=== PATIENT | male | born 1990 | race Caucasian/White ===

== ENCOUNTER 2018-08-16 19:28 | Observation (INO) ==
[2018-08-16] MEDS ORDERED: IOPAMIDOL 100 ML BOTTLE IV ONE (19:29)
--- NOTE | 2018-08-16 19:55 | Emergency Department Note ---
Abdominal Pain HPI - General Chief Complaint: Abdominal Pain Stated Complaint: Right lower abd pain Time Seen by Provider: 08/16/18 19:37 Source: patient, family Mode of arrival: ambulatory Limitations: no limitations - History of Present Illness HPI Narrative: 27-year-old male in ED with lower right quadrant abdominal pain. Patient states last night he went to bed and was woke up by right lower quadrant abdominal pain and a cramping sensation. Patient thought maybe he needed to have a bowel movement. Patient woke in the morning had a bowel movement per his normal, but continued to feel that full cramping feeling. Patient states she's had no ch anges with the urine, has had nausea with one episode of vomiting, no fever no change in appetite, no shortness of breath no difficulty breathing and no chest pain. Patient states the pain is a 5/10 constant. Patient takes no medications and has no allergies. Patient is a past smoker, does drink alcohol every other day and does smoke marijuana occasionally. MD Complaint: abdominal pain Onset (ago): day(s) (1) Consistency: constant Location: RLQ Severity: moderate Severity scale (1-10): 5 Quality: cramping, fullness Radiation: none Improves with: nothing Worsens with: nothing Associated symptoms: Reports: nausea, vomiting. Denies: diarrhea, fever, chills, constipation - Related Data Allergies Allergy/AdvReac Type Severity Reaction Status Date / Time pet dander AdvReac Mild Itching Uncoded 08/16/18 19:33 Review of Systems All systems ED: reviewed and negative except as stated. Abdominal Pain PMH - Social History Smoking status: Former smoker Physical Exam Limitations: no limitations General appearance: alert, anxious, in no apparent distress Head: atraumatic, normocephalic, normal inspection Eye: Present: normal appearance, PERRL. Absent: conjunctival injection ENT: normal oropharynx, mucous membranes moist, TM's normal bilaterally, normal external ear exam Neck: Present: normal inspection. Absent: tenderness, lymphadenopathy Chest: Present: normal inspection, symmetric chest wall rise. Absent: tenderness Respiratory: Present: normal lung sounds bilaterally. Absent: respiratory distress, rales/crackles, wheezes Cardiovascular: Present: regular rate, normal rhythm. Absent: systolic murmur, diastolic murmur Abdominal: Present: soft, tenderness, hypoactive bowel sounds, heel tap sign, Rovsing's sign, tenderness at McBurney's Point. Absent: distention, guarding, rebound, rigidity, organomegaly Abdominal tenderness: Present: RLQ, moderate, heel tap pain Extremities: Present: normal inspection. Absent: pedal edema Back: Present: normal inspection. Absent: tenderness, CVA tenderness (R), CVA t enderness (L) Neurological: Present: alert, oriented X3, normal gait Psychiatric: Present: normal affect, normal mood, anxious. Absent: depressed, agitated, flat affect Skin: Present: warm, dry, intact, normal color. Absent: cool, diaphoretic Course Vital Signs Temperature 97.9 F 08/16/18 19:28 Pulse Rate 84 08/16/18 19:28 Respiratory Rate 18 08/16/18 19:28 Blood Pressure 117/75 08/16/18 19:28 Pulse Oximetry (%) 96 08/16/18 19:28 Temperature 97.9 F 08/16/18 19:28 Pulse Rate 84 08/16/18 19:28 Respiratory Rate 18 08/16/18 19:28 Blood Pressure 117/75 08/16/18 19:28 Pulse Oximetry (%) 96 08/16/18 19:28 Abdominal Pain - MDM Narrative Medical decision making narrative: Pt did not want any IV fluid or medication for nausea at this time. WBC 15.4 all other lab work virtually unremarkable. Patient's urine dip was neg ative for leukocytes, nitrites, blood, ketones, glucose. Specific gravity was 1.030. Dr. Bill was consulted and he advised for patient to be nothing by mouth after midnight and he would see patient and perform surgery in the morning. Placed patient on Zosyn prior to transfer to floor. - Lab Data Lab results reviewed: Yes I reviewed the patient's lab results. Result diagrams: 08/16/18 19:56 08/16/18 19:56 Lab Results 08/16/18 08/16/18 Range/Units 19:56 19:56 WBC 15.4 H (4.5-11.0) K/mcL RBC 4.55 (4.50-5.90) M/mcL Hgb 14.3 (13.5-16.5) g/dL Hct 43.1 (41.0-55.0) % POC Hct 45.0 (41.0-55.0) % MCV 94.8 (80.0-100.0) fL MCH 31.5 (26.0-34.0) pg MCHC 33.2 (31.0-36.0) g/dL RDW 12.8 (11.5-14.5) % Plt Count 246 (140-440) K/mcL MPV 8.3 (7.4-10.4) fL Gran % 84.9 H (38.0-78.0) % Lymph % (Auto) 8.8 L (15.5-49.0) % [place] % (Auto) 5.7 (1.0-12.0) % Eos % (Auto) 0.6 (0.0-7.0) % Baso % (Auto) 0 (0.0-2.0) % Gran # 13.1 H (1.8-8.0) K/mcL Lymph # (Auto) 1.4 L (1.5-4.8) K/mcL [place] # (Auto) 0.9 (0.1-0.9) K/mcL Eos # (Auto) 0.1 (0.0-0.7) K/mcL Baso # (Auto) 0 (0.0-0.3) K/mcL POC Sodium 139 (133-145) mmol/L Sodium 137 (133-145) mmol/L POC Potassium 3.7 (3.3-5.1) mmol/L Potassium 3.8 (3.3-5.1) mmol/L POC Chloride 102 (96-108) mmol/L Chloride 100 (96-108) mmol/L Carbon Dioxide 24 (22-30) mmol/L POC Total CO2 24 (22-30) mmol/L Anion Gap 13.0 (8-16) POC BUN 10 (6-20) mg/dl BUN 10 (6-20) mg/dl Creatinine 0.7 (0.7-1.2) mg/dl POC Creatinine 0.7 (0.7-1.2) mg/dl GFR Calculation 129 Glucose 89 (70-105) mg/dL POC Glucose 93 (70-105) mg/dL Calcium 9.3 (8.6-10.4) mg/dl POC WB Ioniz Calcium 1.19 (1.16-1.32) mmol/L Total Bilirubin 0.7 (0.0-1.0) mg/dL AST 25 (0-37) U/l ALT 30 (0-40) U/l Alkaline Phosphatase 55 (39-117) U/L Total Protein 7.7 (5.9-8.4) gm/dL Albumin 4.7 (3.2-5.2) gm/dL Globulin 3.0 (2.2-3.7) gm/dL Albumin/Globulin Ratio 1.6 (1.0-2.3) Lipase 27 (7-60) U/L - Radiology Data Radiology results reviewed: Yes I reviewed the patient's radiology results. CT abdominal pelvis with contrast: Acute appendicitis without rupture. 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 Disposition Pt seen by CHAIR FINISHER/PA only: No ([facility]) Clinical Impression: Appendicitis Qualifiers: Appendicitis type: acute appendicitis Acute appendicitis type: with localized peritonitis Appendicitis gangrene presence: without gangrene Appendicitis perforation presence: without perforation Appendicitis abscess presence: without abscess Qualified Code(s): K35.30 - Acute appendicitis with localized peritonitis, without perforation or gangrene Disposition: Xfer As Inpt ([facility]) Condition: Good Time of Disposition: 21:33
[2018-08-16 20:48] LABS: Basophils # (Auto) 0 K/mcL (0.0-0.3); Basophils % (Auto) 0 % (0.0-2.0); Eosinophils # (Auto) 0.1 K/mcL (0.0-0.7); Eosinophils % (Auto) 0.6 % (0.0-7.0); Granulocytes % (Auto) 84.9 % (38.0-78.0); Lymphocytes # (Auto) 1.4 K/mcL (1.5-4.8); Lymphocytes % (Auto) 8.8 % (15.5-49.0); Mean Cell Volume 94.8 fL (80.0-100.0); Mean Corpuscular HGB Conc 33.2 g/dL (31.0-36.0); Monocytes # (Auto) 0.9 K/mcL (0.1-0.9); Monocytes % (Auto) 5.7 % (1.0-12.0); Platelet Count 246 K/mcL (140-440); RBC 4.55 M/mcL (4.50-5.90); Red Cell Distribution Width 12.8 % (11.5-14.5)
[2018-08-16 21:05] LABS: ALT/SGPT 30 U/l (0-40); Albumin 4.7 gm/dL (3.2-5.2); Albumin/Globulin Ratio 1.6 (1.0-2.3); Alkaline Phosphatase 55 U/L (39-117); Blood Urea Nitrogen 10 mg/dl (6-20); Lipase 27 U/L (7-60)
[2018-08-16] MEDS ORDERED: PIPERACILLIN SODIUM/TAZOBACTAM 3.375 GM in DEXTROSE 5% IN WATER 50 ML IV ONE (21:19)
[2018-08-16] MEDS ORDERED: ONDANSETRON 4 MG/2 ML VIAL IV PRN (21:20)
[2018-08-16] MEDS ORDERED: HYDROmorphone 2 MG/ML VIAL IV PRN (21:26)
[2018-08-16] MEDS: PIPERACILLIN SODIUM/TAZOBACTAM 3.375 GM in DEXTROSE 5% IN WATER 50 ML IV SCH (22:14)
[2018-08-17] MEDS: PIPERACILLIN SODIUM/TAZOBACTAM 3.375 GM in DEXTROSE 5% IN WATER 50 ML IV SCH ×5 (01:05→23:40)
--- NOTE | 2018-08-17 06:04 | Cat Scan Report ---
CLINICAL INFORMATION: Right lower quadrant abdominal pain COMPARISON: None. TECHNIQUE: Axial images were obtained through the abdomen and pelvis. Sagittally and coronally reformatted images. 80 mL contrast material injected intravenously. Oral contrast material was not administered FINDINGS: Appendix is enlarged and measures approximately 9 mm in cross-sectional diameter. The appendiceal wall enhances. There is no significant appendicolith. There is no periappendiceal inflammatory change. There is no focal abscess. Appearance is consistent with appendicitis without rupture. Lung bases are negative. No parenchymal infiltrate or mass. No pleural fluid. No pericardial fluid. Negative liver. No focal intrahepatic abnormality. Liver contour is smooth. There is no ascites. Gallbladder is present. No calcified gallstones. Negative spleen. No splenomegaly. Normal enhancement of splenic and portal veins. Negative pancreas. No pancreatic mass. No evidence for pancreatitis. Negative adrenal glands. Kidneys are negative. No solid or cystic mass. No hydronephrosis. No significant retroperitoneal or mesenteric adenopathy. No pneumoperitoneum. No biliary or portal venous gas. No pneumatosis. Lumbar spine, sacrum, pelvis are negative. Examination was initially interpreted by [facility] IMPRESSION: Enlarged appendix with enhancing wall. Appearance is consistent with early appendicitis without rupture The exam was performed using radiation dose optimization techniques including, but not limited to, automated exposure control, adjustment of the mA and/or kV according to patient size and use of iterative reconstruction technique. Interpreted and Authenticated by: Thomas Alvarez 08/17/18
--- NOTE | 2018-08-17 06:11 | Emergency Department Note ---
ED Note Addendum Note Addendum: I discussed this case with the mid-level provider and agree with the assessment and plan.
[2018-08-17] MEDS ORDERED: 0.9 % SODIUM CHLORIDE 1,000 ML IV SCH (09:30)
--- NOTE | 2018-08-17 13:37 | General Surg History&Physical ---
History of Present Illness Patient information: Note initiated : 08/17/18 at 1:35 pm Service Date, if different from initiated Date: [] Patient: Ed Ko a 27 y/o M admitted on 08/16/18 for Right lower abd pain. Chief Complaint: [] HPI: Mr. Ko is a 27 year old M admitted with right lower quadrant pain nausea and vomiting. The patient started having diffuse abdominal pain on 15 August. Pain continued throughout yesterday which was 16 August. Overnight the pain localized to the right lower quadrant and he was seen in the emergency room. He had nausea with vomiting but no change in bowel habits. He has not had similar pain in the past. He had a CT scan which showed a dilated edematous appendix. White blood count is 15,000. Patient is counseled for appendicitis and will have laparoscopic appendectomy Review of Systems All systems PM: reviewed and no additional remarkable complaints except as stated Past History Past medical history: No medical illnesses Past surgical history: No operative procedure Past family history: Parents alive and well without illness 1 sibling age 32 without illness Past social history: Single Daily tobacco use Occasional beer use Occasional marijuana use Medications and Allergies Home Medications Medication Instructions Recorded Confirmed Type No Known Home Meds 08/17/18 08/17/18 History Allergies Allergy/AdvReac Type Severity Reaction Status Date / Time pet dander AdvReac Mild Itching Uncoded 08/16/18 19:33 Exam Temp Pulse Resp BP Pulse Ox 98.2 F 70 16 114/64 100 08/17/18 11:10 08/17/18 03:46 08/17/18 11:10 08/17/18 11:10 08/17/18 11:10 - General physical appearance well developed, well nourished, no distress - Eyes PERRL, normal ocular movement - ENT normal pinna, normal nares, normal mucosa, no hearing loss, no congestion - Head Head exam IM: Present: atraumatic, normocephalic - Neck no masses, no bruits, trachea midline, no lymphadenopathy, no venous distension - Cardiovascular Cardiovascular exam IM: Present: normal rate and rhythm - Respiratory normal expansion, normal respiratory effort, clear to percussion, clear to auscultation - Abdomen Abdomen: Present: soft, tender (mild tenderness to palpation in right lower quadrant without mass), bowel sounds Hernia: Present: none - Genitourinary Present: normal penis with no external lesions - Integumentary Present: no rash, no growths, no abnormal pigmentation - Neurologic Present: normal coordination, normal sensation - Musculoskeletal Present: normal gait, normal posture - Psychiatric Present: oriented to time, oriented to person, oriented to place, speech is normal, memory intact Assessment and Plan (1) Acute appendicitis Patient is counseled for laparoscopic appendectomy and it will be performed today Status: Acute Qualifiers: Acute appendicitis type: with localized peritonitis Appendicitis gangrene presence: without gangrene Appendicitis perforation presence: without perforation
[2018-08-17] MEDS ORDERED: PROPOFOL 200 MG/20 ML VIAL IV ONE (14:00)
[2018-08-17] MEDS ORDERED: MIDAZOLAM 2 MG/2 ML VIAL IV ONE (14:00)
[2018-08-17] MEDS ORDERED: LIDOCAINE HCL/PF 100 MG/5 ML SYRINGE IV ONE (14:00)
[2018-08-17] MEDS ORDERED: ROCURONIUM 10 MG/ML ML IV ONE (14:00)
[2018-08-17] MEDS ORDERED: GLYCOPYRROLATE 0.2 MG/ML VIAL IV ONE (14:00)
[2018-08-17] MEDS ORDERED: PHENYLEPHRINE 10 MG/ML VIAL IV ONE (14:00)
[2018-08-17] MEDS ORDERED: ONDANSETRON 4 MG/2 ML VIAL IV ONE (14:00)
[2018-08-17] MEDS ORDERED: fentaNYL 250 MCG/5 ML VIAL IV ONE (14:00)
[2018-08-17] MEDS ORDERED: NEOSTIGMINE 1 MG/ML VIAL IV ONE (14:00)
[2018-08-17] MEDS ORDERED: DEXAMETHASONE 4 MG/ML VIAL IV ONE (14:00)
[2018-08-17] MEDS ORDERED: ACETAMINOPHEN 1,000 MG/100 ML BOTTLE IV ONE ×2 (14:22→21:01)
[2018-08-17] MEDS ORDERED: IPRATROPIUM/ALBUTEROL 3 ML AMPUL.NEB NEB PRN (14:22)
[2018-08-17] MEDS ORDERED: ONDANSETRON 4 MG/2 ML VIAL IV PRN ×2 (14:22→15:39)
[2018-08-17] MEDS ORDERED: LACTATED RINGERS 250 ML IV PRN (14:22)
[2018-08-17] MEDS ORDERED: diphenhydrAMINE 50 MG/ML VIAL IV PRN (14:22)
[2018-08-17] MEDS ORDERED: BENZOCAINE/MENTHOL 1 LOZENGE PO PRN (14:22)
[2018-08-17] MEDS ORDERED: NALOXONE HCL 0.4 MG/ML VIAL IV PRN (14:22)
[2018-08-17] MEDS ORDERED: PROMETHAZINE 25 MG/ML VIAL IV PRN ×2 (14:22→15:39)
[2018-08-17] MEDS ORDERED: FLUMAZENIL 0.1 MG/ML ML IV PRN (14:22)
[2018-08-17] MEDS ORDERED: KETOROLAC 30 MG/ML VIAL IV PRN (14:22)
[2018-08-17] MEDS ORDERED: MEPERIDINE 25 MG/ML SYRINGE IV PRN (14:22)
[2018-08-17] MEDS ORDERED: LACTATED RINGERS 1,000 ML IV SCH (14:30)
--- NOTE | 2018-08-17 14:38 | Brief Operative Note ---
Date of procedure: 08/17/18 Pre-op diagnosis: acute appendicitis Post-op diagnosis: other (acute appendicitis) Procedure: LAPAROSCOPIC APPENDECTOMY Grafts/Implants: No Anesthesia: GETA Findings: ACUTE APPENDICITIS Complications: none Surgeon: Radha Bill Estimated blood loss (cc): 5 Specimens Removed/Pathology: other (APPENDIX) Condition: stable Disposition: PACU
[2018-08-17] MEDS: fentaNYL 100 MCG/2 ML VIAL IV PRN ×4 (15:11→15:20)
[2018-08-17] MEDS: HYDROmorphone 2 MG/ML VIAL IV PRN ×2 (16:01→19:16)
[2018-08-17] MEDS: 0.9 % SODIUM CHLORIDE 1,000 ML IV SCH ×3 (16:06→19:50)
[2018-08-17] MEDS: PANTOPRAZOLE 40 MG VIAL IV SCH (16:43)
[2018-08-17] MEDS: ACETAMINOPHEN 1,000 MG in PREMIX 1 BAG IV SCH (21:13)
[2018-08-18] MEDS: HYDROmorphone 2 MG/ML VIAL IV PRN (00:50)
[2018-08-18] MEDS ORDERED: ACETAMINOPHEN 1,000 MG/100 ML BOTTLE IV ONE ×2 (03:21→08:01)
[2018-08-18] MEDS: ACETAMINOPHEN 1,000 MG in PREMIX 1 BAG IV SCH ×2 (03:29→08:06)
[2018-08-18] MEDS: PIPERACILLIN SODIUM/TAZOBACTAM 3.375 GM in DEXTROSE 5% IN WATER 50 ML IV SCH ×2 (05:55→11:10)
[2018-08-18] MEDS: PANTOPRAZOLE 40 MG VIAL IV SCH (08:05)
[2018-08-18] MEDS: 0.9 % SODIUM CHLORIDE 1,000 ML IV SCH (11:11)
--- NOTE | 2018-08-18 12:21 | Surgical Pathology Report ---
HISTOLOGY SPECIMEN MICROSCOPIC DIAGNOSIS APPENDIX, APPENDECTOMY: -- ACUTE APPENDICITIS. (RLF:[place]) CLINICAL HISTORY Right lower abdominal pain. PROCEDURAL IMPRESSION Acute appendicitis. GROSS DESCRIPTION Received in formalin labeled appendix, is a 6.3 cm long by up to 1 cm in diameter pink-koehler appendix with 0.7 cm of attached yellow-koehler adipose tissue. The margin is stapled closed. The lumen contains milky yellow-koehler fluid. Grossly no perforations are identified. Marketing Assistant Manager sections submitted - one cassette. (STS:sln) Electronically Signed by: Maida Hdez M.D.
--- NOTE | 2018-08-18 13:01 | Discharge Summary ---
Providers - Providers Patient information: Note initiated : 08/18/18 at 12:59 pm Service Date, if different from initiated Date: [] Patient: Ed Ko 27 y/o M admitted on 08/16/18 for Right lower abd pain. Chief Complaint: [] Date of admission: 08/16/18 Discharge date: 08/18/18 Attending physician: Radha Bill Hospitalization Hospital course: 27-year-old male with a history of a 24-hour history of abdominal pain. Seen in the emergency room on the 16 August with findings of acute appendicitis. Patient had laparoscopic appendectomy on 17 August. He has done well overnight and has no complaint except some mild discomfort. He is tolerating diet without difficulty. He is stable for discharge home. Discharge diagnosis: acute appendicitis Reason for admission: abdominal pain nausea and vomiting Procedures: Laparoscopic appendectomy Pertinent studies/significant findings: CT of the abdomen and pelvis with IV contrast Complications: None Exam Temp Pulse Resp BP Pulse Ox 98.7 F 63 14 124/61 98 08/18/18 11:13 08/18/18 11:13 08/18/18 11:13 08/18/18 11:13 08/18/18 11:13 - General physical appearance well developed, well nourished, no distress - Eyes PERRL, normal ocular movement - ENT normal pinna, normal nares, normal mucosa, no hearing loss, no congestion - Head Head exam IM: Present: atraumatic, normocephalic - Neck no masses, no bruits, trachea midline, no lymphadenopathy, no venous distension - Cardiovascular Cardiovascular exam IM: Present: normal rate and rhythm - Respiratory normal expansion, normal respiratory effort, clear to percussion, clear to auscultation - Abdomen Abdomen: Present: soft, tender (moderate tenderness around port sites and lower abdomen; good active bowel sounds), bowel sounds Hernia: Present: none - Genitourinary Present: normal penis with no external lesions - Integumentary Present: no rash, no growths, no abnormal pigmentation - Neurologic Present: normal coordination, normal sensation - Musculoskeletal Present: normal gait, normal posture - Psychiatric Present: oriented to time, oriented to person, oriented to place, speech is normal, memory intact Discharge Plan - Patient/Caregiver Discharge Instructions Activity: increase activity as tolerated Diet: Regular Diet Additional Instructions: Leave dressings in place unless they become bloody Contact the office for dressing change if needed Follow-up in the office on September 04 Prescriptions: oxyCODONE HCL/ACETAMINOPHEN [Endocet 10-325 mg Tablet] 1 tab PO Q4H PRN #30 tab PRN Reason: Pain - Follow up Plan Disposition: Home, Self-Care Prognosis: Good Rehab Potential: Good I certify that the patient requires SNF services.: No Overall status at discharge: patient is progressing back to baseline Pending Studies Resuscitation Status Full Code Diet Regular Diet Start FriAug 18 346 Hydromorphone HCl (Dilaudid) 1 mg IV Q2HP PRN PRN Reason: PAIN LEVEL > 6 Last Admin: 08/18/18 00:50 Dose: 1 mg Documented by: Admin: 08/17/18 19:16 Dose: 1 mg Documented by: Admin: 08/17/18 16:01 Dose: 1 mg Documented by: [email or web address] Piperacillin Sod/Tazobactam (Sod 3.375 gm/ Dextrose) 50 mls @ 100 mls/hr IV Q6H SARINA; Protocol Last Admin: 08/18/18 11:10 Dose: 100 mls/hr Documented by: Infusion: 08/18/18 09:06 Dose: 0 mls/hr Documented by: Admin: 08/18/18 05:55 Dose: 100 mls/hr Documented by: Infusion: 08/18/18 00:10 Dose: 100 mls/hr Documented by: Admin: 08/17/18 23:40 Dose: 100 mls/hr Documented by: Infusion: 08/17/18 17:52 Dose: 100 mls/hr Documented by: Admin: 08/17/18 17:22 Dose: 100 mls/hr Documented by: [email or web address] Acetaminophen 1,000 mg/ Premix 100 mls @ 200 mls/hr IV Q6H SARINA Stop: 08/18/18 20:59 Last Admin: 08/18/18 08:06 Dose: Not Given Documented by: Admin: 08/18/18 03:29 Dose: Not Given Documented by: Admin: 08/17/18 21:13 Dose: Not Given Documented by: OBIE Sodium Chloride (Sodium Chloride 0.9%) 1,000 mls @ 75 mls/hr IV .[id number] SARINA Last Admin: 08/18/18 11:11 Dose: Not Given Documented by: Admin: 08/17/18 19:50 Dose: 75 mls/hr Documented by: [email or web address] Pantoprazole Sodium (Protonix) 40 mg IV BIDAC [facility] Last Admin: 08/18/18 08:05 Dose: 40 mg Documented by: Admin: 08/17/18 16:43 Dose: 40 mg Documented by: [email or web address] Shift Summary 08/18/18 04:13 Shift Summary by Eliza Barrios Slept most of the night. Voiding per urinal. Had pain meds twice along w/scheduled Ofirmev. Has not needed nausea meds tonight. Tolerating small amounts of red food w/o nausea. Plan is for him to go home today, sometime after noon. Initialized on 08/18/18 04:13 - END OF NOTE
[2018-08-18] MEDS ORDERED: oxyCODONE/APAP 10/325MG TABLET PO ONE (13:37)
--- NOTE | 2018-08-18 16:47 | Operative Note ---
DATE OF OPERATION: 08/17/2018 PREOPERATIVE DIAGNOSIS: Acute appendicitis. POSTOPERATIVE DIAGNOSIS: Acute appendicitis. PROCEDURE: Laparoscopic appendectomy. SURGEON: Radha Bill M.D. FINDINGS: Acutely inflamed appendix without perforation or major separation. DESCRIPTION OF PROCEDURE: Under general anesthesia, patient's abdomen was prepped and draped in a sterile field. A supraumbilical midline incision was made. Veress needle was inserted uneventfully. The abdomen was insufflated with 2.5 liters of CO2. A 12 mm port was placed. Laparoscope placed. The patient was positioned in deep Trendelenburg position and rotated to the left. A 5 mm port was placed in the suprapubic midline and a 12 mm port in the left lower quadrant. The appendix was found lying in the right gutter. It was grasped by the mesoappendix and placed on stretch. The mesoappendix was not very thick, so it was elected to transect the mesoappendix and appendix with a single fire of the stapler. The appendix was positioned, and the base of the appendix and mesoappendix were transected using the Endo HEIDI stapler. The appendix was placed in an Endopouch and retrieved. Irrigation was carried out. There was no bleeding. There was no purulence noted in the pelvis or in the right gutter. CO2 was allowed to escape from the abdomen and the ports were removed. Fascia at the umbilicus was closed with interrupted 0 Vicryl. Skin incisions were closed with varun. The patient tolerated the procedure well. Dressings of Tegaderm were placed. He was awakened, transferred to a bed, and taken to the postanesthetic care unit in stable, satisfactory condition. LCS:sabrina Job ID: [id number] Doc ID: [id number] Radha Bill M.D.
[2018-08-19 15:51] LABS: Basophils # (Auto) 0 K/mcL (0.0-0.3); Basophils % (Auto) 0.1 % (0.0-2.0); Eosinophils # (Auto) 0 K/mcL (0.0-0.7); Eosinophils % (Auto) 0.2 % (0.0-7.0); Lymphocytes % (Auto) 18.6 % (15.5-49.0); Mean Cell Volume 96.4 fL (80.0-100.0); Mean Corpuscular HGB Conc 33.1 g/dL (31.0-36.0); Monocytes % (Auto) 9.1 % (1.0-12.0); Platelet Count 229 K/mcL (140-440); Red Cell Distribution Width 12.7 % (11.5-14.5)
[2018-08-19 15:55] LABS: ALT/SGPT 18 U/l (0-40); Albumin 3.8 gm/dL (3.2-5.2); Albumin/Globulin Ratio 1.5 (1.0-2.3); Alkaline Phosphatase 44 U/L (39-117); Bilirubin,Direct 0.2 mg/dL (0.0-0.3); Blood Urea Nitrogen 8 mg/dl (6-20); Gamma Glutamyl Transpeptidase 21 U/L (8-61); Uric Acid 1.9 mg/dL (2.5-8.0)
== END 2018-08-18 14:20 | disposition home or self-care (01) ==
LOC: MEDSUR 19:28 → ED 19:28 → MEDSUR 22:10
PROVIDERS: ADMIT Family Medicine Adult Medicine; ATTEND Family Medicine Adult Medicine
PROC: LAPAPPY (ICD-10-PCS; 2018-08-17 13:58)